=== PATIENT | female | born 1935 | race Caucasian/White ===

== ENCOUNTER 2017-01-14 12:00 | Observation (INO) | payer OTHER, BC ==
[2017-01-14] MEDS ORDERED: ONDANSETRON 4 MG/2 ML VIAL ONE ×2 (12:25→13:47)
[2017-01-14] MEDS ORDERED: ONDANSETRON 4 MG/2 ML VIAL IVPUSH ONE (13:46)
--- NOTE | 2017-01-14 14:00 | PDOC ---
*Physical Exam - Vital Signs Last Vital Signs Temp Pulse Resp BP Pulse Ox 97.3 F L 61 18 142/84 100 01/14/17 12:00 01/14/17 12:00 01/14/17 12:00 01/14/17 12:00 01/14/17 12:00 - Physical Exam Comments: 01/14/17 14:00 MIDLEVEL NOTE Pt seen by Midlevel Provider under my direct supervision. Pt interviewed and examined. Ancillary studies reviewed. I agree with plan as outlined by Midlevel Provider. 01/14/17 15:23 EKG Atrial paced rhythm with a first degree AV block Left axis deviation -8 Normal QRS duration Normal QTC There is nonspecific ST-T wave abnormalities across the anterior precordium When compared to the EKG of 01/28/15 These changes are new from the prior EKG 01/14/17 16:37 Laboratory Results - last 24 hr 01/14/17 01/14/17 01/14/17 13:59 13:59 13:59 WBC 6.3 RBC 3.83 Hgb 11.9 Hct 34.8 MCV 90.8 MCHC 34.3 RDW 13.7 Plt Count 226 D MPV 7.2 L Neutrophils % 79.2 D Lymphocytes % 13.2 D Monocytes % 6.9 Eosinophils % 0.4 D Basophils % 0.3 INR 1.37 H PTT (Actin FS) 34.1 D Sodium 141 Potassium 4.0 Chloride 105 Carbon Dioxide 27 Anion Gap 9 BUN 15 Creatinine 0.7 Creat Clearance w eGFR > 60 Random Glucose 120 H D Calcium 11.1 H Total Bilirubin 0.3 D AST 20 ALT 30 Alkaline Phosphatase 79 Creatine Kinase 31 Troponin I < 0.02 Total Protein 7.2 Albumin 3.6 Digoxin 01/14/17 13:59 WBC RBC Hgb Hct MCV MCHC RDW Plt Count MPV Neutrophils % Lymphocytes % Monocytes % Eosinophils % Basophils % INR PTT (Actin FS) Sodium Potassium Chloride Carbon Dioxide Anion Gap BUN Creatinine Creat Clearance w eGFR Random Glucose Calcium Total Bilirubin AST ALT Alkaline Phosphatase Creatine Kinase Troponin I Total Protein Albumin Digoxin 0.6991 L Impression with mild hypercalcemia, with a corrected calcium of 11.4 May be related to hydrochlorothiazide/thiazide diuretics Will check PTH 01/14/17 16:39 CT head without-moderate atrophy, without acute ED Treatment Course - LABORATORY CBC & Chemistry Diagram: 01/15/17 05:35 01/15/17 05:35 *DC/Admit/Observation/Transfer Diagnosis at time of Disposition: Nausea, Abnormal EKG Urinary tract infection Qualifiers: Urinary tract infection type: site unspecified Hematuria presence: without hematuria Qualified Code(s): N39.0 - Urinary tract infection, site not specified - Discharge Dispostion Condition at time of disposition: Stable
[2017-01-14 14:11] LABS: BASOPHIL 0.3 % (0-2.0); EOSINOPHIL 0.4 % (0-4.5); MCH 31.1 pg (25.7-33.7); MCHC 34.3 g/dl (32.0-36.0); MEAN CELL VOLUME 90.8 fl (80-96); MEAN PLT VOLUME 7.2 fl (7.5-11.1); NEUTROPHILS 79.2 % (42.8-82.8); PLATELET COUNT 226 K/MM3 (134-434); RDW 13.7 % (11.6-15.6); WHITE BLOOD COUNT 6.3 K/mm3 (4.0-10.0)
--- NOTE | 2017-01-14 14:16 | PDOC ---
History of Present Illness - General Chief Complaint: Lightheaded Stated Complaint: NAUSIA Time Seen by Provider: 01/14/17 13:45 History Source: Patient, Family Exam Limitations: No Limitations - History of Present Illness Initial Comments: 01/14/17 14:44 Chief complaint: Nausea and lightheadedness pt is an 81-year-old email with a history of cardiac, on eloquist and dig, hypothyroid and hypertension 8's that starting yesterday she was feeling weak, didn't dizzy, lightheaded and nauseous. Did not have a good appetite, ate dinner but is feeling worse today. No chest pain or shortness of breath, no headache. Whole family had respiratory illness self resolved 1-1/2-2 weeks ago. No fever. GENERAL/CONSTITUTIONAL: No fever, +weakness. dizziness HEAD, EYES, EARS, NOSE AND THROAT: No change in vision. No ear pain or discharge. No sore throat. CARDIOVASCULAR: No chest pain RESPIRATORY: No shortness of breath or cough GASTROINTESTINAL: No pain, +nausea, no:vomiting, diarrhea or constipation GENITOURINARY: No dysuria MUSCULOSKELETAL: No neck or back pain SKIN: No rash NEUROLOGIC: No headache, vertigo, loss of consciousness, or loss of sensation. GENERAL: The patient is awake, alert, and fully oriented, in no acute distress. HEAD: Normal with no signs of trauma. EYES: Pupils equal, round and reactive to light, sclera anicteric, conjunctiva clear. ENT: pharynx: no erythema, no exudate, uvula midline NECK: supple CHEST: clear, nontender, rr ABD: soft, nontender EXTREMITIES: Normal range of motion, at baseline, neurovascular intact NEUROLOGICAL: Normal speech SKIN: Warm, Dry Past History - Past Medical History Allergies/Adverse Reactions: Allergies Allergy/AdvReac Type Severity Reaction Status Date / Time rivaroxaban [From Xarelto] Allergy Verified 01/14/17 12:27 Home Medications: Ambulatory Orders Atorvastatin Ca [Lipitor -] 10 mg PO HS 01/23/15 Levothyroxine [Synthroid -] 25 mcg PO DAILY 01/23/15 Digoxin [Lanoxin -] 0.125 mg PO DAILY tablet 01/29/15 Apixaban [Eliquis] 5 mg PO BID 01/14/17 Losartan/Hydrochlorothiazide [Losartan-Hctz 50-12.5 mg Tab] 1 each PO DAILY 03/28 Cardiac Disorders: Yes (A-Fib) HTN: Yes Seizures: Yes Other medical history: vertigo - Psycho/Social/Smoking Cessation Hx Anxiety: No Suicidal Ideation: No Smoking History: Never smoked Have you smoked in the past 12 months: No If you are a former smoker, when did you quit?: 1969 Information on smoking cessation initiated: No Hx Alcohol Use: No Drug/Substance Use Hx: No Substance Use Type: None *Physical Exam - Vital Signs Last Vital Signs Temp Pulse Resp BP Pulse Ox 97.3 F L 61 18 142/84 100 01/14/17 12:00 01/14/17 12:00 01/14/17 12:00 01/14/17 12:00 01/14/17 12:00 Heart Score/ECG Review - ECG Intrepretation Rhythm: Regular Rhythm Comment:: 01/14/17 14:52 pAce maker rhythm at 60, LVH, nonspecific ST-T wave changes, QTC 392 01/14/17 17:44 ED Treatment Course - LABORATORY CBC & Chemistry Diagram: 01/14/17 13:59 01/14/17 13:59 - ADDITIONAL ORDERS Additional order review: 01/14/17 13:59 RBC 3.83 MCV 90.8 MCHC 34.3 RDW 13.7 MPV 7.2 L Neutrophils % 79.2 D Lymphocytes % 13.2 D Monocytes % 6.9 Eosinophils % 0.4 D Basophils % 0.3 - Medications Given in the ED: ED Medications Discontinued Medications Generic Name Dose Route Start Last Admin Trade Name Freq PRN Reason Stop Dose Admin Ondansetron HCl 4 mg 01/14/17 13:46 01/14/17 14:00 Zofran Injection IVPUSH 01/14/17 13:47 4 mg ONCE ONE Administration Medical Decision Making - Medical Decision Making 01/14/17 14:53 81-year-old female with weakness, nausea, no abdominal chest pain or shortness of breath, also with poor appetite and lightheadedness. On dig and eloquis. Do cardiac workup, hydrate as patient has not urinated at all since this morning and head CT, due to history of prior bleed and on anticoagulation. Patient will need at least to stay overnight 01/14/17 17:45 Patient continues with nausea, hydrated, cardiac enzymes are negative, EKG is slightly changed, dig level is just below normal and patient found to have UTI and calcium is elevated, patient is on hydrochlorothiazide area did patient being hydrated, anti-emetics, Discussed Dr. Evans, patient will go to telemetry labs, consult for cardiology , no need to call today as per Dr. Evans, he will follow Antibiotics ordered, urine culture ordered *DC/Admit/Observation/Transfer Diagnosis at time of Disposition: Nausea, Abnormal EKG Urinary tract infection Qualifiers: Urinary tract infection type: site unspecified Hematuria presence: without hematuria Qualified Code(s): N39.0 - Urinary tract infection, site not specified - Discharge Dispostion Condition at time of disposition: Stable Admit: Yes - Referrals
[2017-01-14 14:23] LABS: INR 1.37 (0.82-1.09); PROTHROMBIN TIME (PATIENT) 15.2 SEC (9.98-11.88)
[2017-01-14 14:26] LABS: ACTIVATED PTT 34.1 SECONDS (26.9-34.4)
[2017-01-14] MEDS ORDERED: SODIUM CHLORIDE 1,000 ML IV STA (14:29)
[2017-01-14 14:37] LABS: ALBUMIN 3.6 g/dl (3.4-5.0); ANION GAP 9 (8-16); BILIRUBIN,TOTAL 0.3 mg/dL (0.2-1.0); CALCIUM 11.1 mg/dL (8.5-10.1); CO2 27 mmol/L (21-32); CREATININE 0.7 mg/dL (0.55-1.02); GLUCOSE,RANDOM 120 mg/dL (74-106); SGOT/AST 20 U/L (15-37); SGPT/ALT 30 U/L (12-78); TOT PROT 7.2 g/dl (6.4-8.2)
[2017-01-14 14:39] LABS: ALK PHOS 79 U/L (45-117); TROPONIN I < 0.02 ng/ml (0.00-0.05)
[2017-01-14 16:50] LABS: URINE APPEARANCE SLCLOUDY; URINE BILIRUBIN NEGATIVE (NEGATIVE); URINE COLOR YELLOW; URINE GLUCOSE (UA) NEGATIVE (NEGATIVE); URINE KETONE NEGATIVE (NEGATIVE); URINE NITRITE NEGATIVE (NEGATIVE); URINE UROBILINOGEN NEGATIVE E.U./dl (0.2-1.0)
[2017-01-14 16:54] LABS: URINE BLOOD 1+ (NEGATIVE); URINE LEUK ESTERASE 3+ (NEGATIVE); URINE PROTEIN 1+ (NEGATIVE)
[2017-01-14 16:55] LABS: URINE MUCUS FEW; URINE RBC 8 /hpf (0-3); URINE WBC 26 /hpf (3-5)
[2017-01-14] MEDS ORDERED: METOCLOPRAMIDE HCL INJECTION 10 MG/2 ML VIAL IVPB ONE (17:02)
[2017-01-14] MEDS ORDERED: CEFTRIAXONE 1 GM in DEXTROSE 5%-WATER - 50 ML IVPB ONE (17:04)
[2017-01-14] MEDS ORDERED: METOCLOPRAMIDE HCL INJECTION 10 MG/2 ML VIAL ONE (17:57)
[2017-01-14] MEDS ORDERED: CEFTRIAXONE 50 ML ONE (17:57)
--- NOTE | 2017-01-14 18:57 | EKG ---
Test Reason : Blood Pressure : / mmHG Vent. Rate : 060 BPM Atrial Rate : 058 BPM P-R Int : 000 ms QRS Dur : 092 ms QT Int : 392 ms P-R-T Axes : 000 -08 -11 degrees QTc Int : 392 ms Atrial-paced rhythm with prolonged AV conduction MINIMAL VOLTAGE CRITERIA FOR LVH, MAY BE NORMAL VARIANT T-WAVE INVERSION IN ANTERIOR LEADS FLAT T WAVES IN INFEROLATERAL LEADS ABNORMAL ECG WHEN COMPARED WITH ECG OF 28-JAN-2015 08:24, T WAVES ABNORMALITY IS NOW PRESENT IN ANTERIOR LEADS Confirmed by ELDA CHANDRA, IRVIN ([id number]) on 01/14/2017 6:56:59 PM Referred By: Confirmed By:IRVIN SCHROEDER MD
[2017-01-14 19:10] VITALS: BMI 24.9
[2017-01-14] MEDS ORDERED: ACETAMINOPHEN 325 MG TABLET (FP) PO PRN (21:11)
[2017-01-14] MEDS ORDERED: ONDANSETRON *ODT* 4 MG TABLET SL PRN (21:11)
[2017-01-14] MEDS: ATORVASTATIN CA 10 MG TABLET (FP) PO SCH (23:42)
[2017-01-14] MEDS: APIXABAN 5 MG TABLET PO SCH (23:42)
[2017-01-14 23:58] LABS: TROPONIN I < 0.02 ng/ml (0.00-0.05)
[2017-01-15] MEDS ORDERED: LEVOTHYROXINE NA 25 MCG TABLET (FP) PO SCH (07:00)
[2017-01-15 07:19] LABS: MCH 31.2 pg (25.7-33.7); MCHC 34.4 g/dl (32.0-36.0); MEAN CELL VOLUME 90.5 fl (80-96); MEAN PLT VOLUME 7.9 fl (7.5-11.1); PLATELET COUNT 223 K/MM3 (134-434); RDW 13.9 % (11.6-15.6); WHITE BLOOD COUNT 6.9 K/mm3 (4.0-10.0)
[2017-01-15 07:54] LABS: ANION GAP 5 (8-16); CALCIUM 10.3 mg/dL (8.5-10.1); CHOLESTEROL 146 mg/dL (50-200); CO2 29 mmol/L (21-32); CREATININE 0.7 mg/dL (0.55-1.02); GLUCOSE,RANDOM 72 mg/dL (74-106); SGOT/AST 20 U/L (15-37); SGPT/ALT 27 U/L (12-78)
[2017-01-15 08:04] LABS: ALK PHOS 69 U/L (45-117); BILIRUBIN,TOTAL 0.3 mg/dL (0.2-1.0); LDL CHOLESTEROL (ONLY SJRH) 78 mg/dL (5-100); THYROID STIMULATING HORMONE 4.06 uIU/ml (0.358-3.74); TOT PROT 6.5 g/dl (6.4-8.2)
[2017-01-15 09:21] LABS: FREE T4 1.23 ng/dl (0.76-1.46)
--- NOTE | 2017-01-15 09:39 | CON.CARD ---
Consult Consult Specialty:: cardio Referred by:: irene Reason for Consultation:: dizzy, LH, nauseated - History of Present Illness Chief Complaint: same as above History of Present Illness: 81 yo female presented with sx's of dizziness/LH, nausea. Noted to have new ST-T changes on her ECG. also mild hypercalcemia (11) last seen in our office 2013 by me at that time--reported chronic SOB sx's which were exertional and stable long time also h/o palpitations with LH at that time, ? undiagnosed PSVT--sx's controlled on atenolol she had LE varicosities and edema felt likely venous ins'y she describes to me that she was doing routine things around the house, not exerting but can't remember what exactly, standing up at the time and felt dizzy --like going to lose her balance so sat on couch; not faint/presyncopal--no LOC; like room moving ? spinning; never happened before; denies to me ifeanyi assct palpitations/cp/sob. says her chronic SOB with exertion has been unchanged and actually no sx's of late denies new neuro deficits PMH: HTN HPL venous ins'y (LEs) - Past Medical History Cardio/Vascular: Yes: AFIB, HTN Infectious Disease: Yes: Other (no h/o Lyme disease) Psych: Yes: Anxiety. No: Depression Endocrine: Yes: Hypothyroidism - Alcohol/Substance Use Hx Alcohol Use: No - Smoking History Smoking history: Never smoked Have you smoked in the past 12 months: No If you are a former smoker, when did you quit?: 1970 Home Medications - Allergies Allergies/Adverse Reactions: Allergies Allergy/AdvReac Type Severity Reaction Status Date / Time rivaroxaban [From Xarelto] Allergy Verified 01/14/17 12:27 - Home Medications Home Medications: Ambulatory Orders Atorvastatin Ca [Lipitor -] 10 mg PO HS 01/23/15 Levothyroxine [Synthroid -] 25 mcg PO DAILY 01/23/15 Digoxin [Lanoxin -] 0.125 mg PO DAILY tablet 01/29/15 Apixaban [Eliquis] 5 mg PO BID 01/14/17 Losartan/Hydrochlorothiazide [Losartan-Hctz 50-12.5 mg Tab] 1 each PO DAILY 03/28 Family Disease History - Family Disease History Family History: Denies (no cmp) Vital Signs: Vital Signs Temperature 98.2 F 01/15/17 08:10 Pulse Rate 60 01/15/17 08:10 Respiratory Rate 14 01/15/17 08:10 Blood Pressure 140/78 01/15/17 08:10 O2 Sat by Pulse Oximetry (%) 100 01/14/17 18:30 - Other Data Labs, Other Data: CBC, BMP 01/15/17 05:35 01/15/17 05:35 INR, PTT INR 1.37 (0.82-1.09) H 01/14/17 13:59 Troponin, BNP 01/14/17 23:00 Troponin I < 0.02 Troponin, BNP 01/14/17 23:00 Troponin I < 0.02 Laboratory Tests 01/14/17 01/14/17 01/15/17 13:59 23:00 05:35 WBC 6.9 Hgb 11.2 Plt Count 223 Sodium Potassium Carbon Dioxide BUN Creatinine Calcium 11.1 H AST ALT Creatine Kinase 31 53 Troponin I < 0.02 < 0.02 Triglycerides Cholesterol Total LDL Cholesterol HDL Cholesterol TSH 01/15/17 05:35 WBC Hgb Plt Count Sodium 143 Potassium 4.0 Carbon Dioxide 29 BUN 15 Creatinine 0.7 Calcium 10.3 H AST 20 ALT 27 Creatine Kinase Troponin I Triglycerides 90 Cholesterol 146 Total LDL Cholesterol 78 HDL Cholesterol 63 H TSH 4.06 H ekg: A-paced/V-sensed; normal axis/intervals; nonsp ST-Ts anterior and infer leads all priors reviewed: has had intermittent similar ST-Ts on prior ekg's here 2014 Imaging - Results Chest X-ray: Report Reviewed (clear lungs/pleura) Assessment/Plan dizzy/LH, nausea: -sx's sound highly c/w vertigo/vestibular etiology -per pmd +/- neuro--? meclizine trial, ? outpt vestibular rehab -no low bp's here, incl when orthostatic VSs checked -trop neg x 2 -ECG findings not entirely new--she had fluctuating ST-Ts on ecg here 01/24 with similar appearance on mult occasions -CT head no acute pathology -PM function normal on check with dr woods 09/27; normal fxn evident on tele here--no need for rpt interrogation here given dizziness has alternate etiology -cont telemetry x 24 hours paroxysmal AF/SSS: -rapid rates when here 2014, treated with dig b/c BP low side -s/p PPM 2015 -on eliquis--cont same HTN: -bp well controlled here -no orthostatic changes supine to standing mildly elevated TSH: -per pmd venous ins'y: -chronic, with mild edema -not signif changed here, not troubling to her -cont home HCTZ, without lasix and monitor
[2017-01-15] MEDS: DIGOXIN 0.125 MG TABLET (FP) PO SCH (09:56)
[2017-01-15] MEDS: APIXABAN 5 MG TABLET PO SCH ×2 (09:56→21:18)
[2017-01-15] MEDS: LOSARTAN 50MG/HCTZ 12.5MG 1 TAB (FP) PO SCH (09:57)
[2017-01-15] MEDS ORDERED: CEFTRIAXONE 50 ML IVPB SCH (10:00)
[2017-01-15] MEDS ORDERED: PT OWN MED DRAWER 7, Y5N ONE (11:59)
[2017-01-15] MEDS ORDERED: LEVOTHYROXINE NA 50 MCG TABLET (FP) PO SCH (17:52)
--- NOTE | 2017-01-15 17:53 | HP ---
Admitting History and Physical - Primary Care Physician PCP: Sebastian Evans - Admission Chief Complaint: WEAKNESS History Source: Medical Record - Past Medical History Cardiovascular: Yes: AFIB, HTN Infectious Disease: Yes: Other (no h/o Lyme disease) Psych: Yes: Anxiety. No: Depression Endocrine: Yes: Hypothyroidism - Smoking History Smoking history: Never smoked Have you smoked in the past 12 months: No If you are a former smoker, when did you quit?: 1969 - Alcohol/Substance Use Hx Alcohol Use: No Home Medications - Allergies Allergies/Adverse Reactions: Allergies Allergy/AdvReac Type Severity Reaction Status Date / Time rivaroxaban [From Xarelto] Allergy Verified 01/14/17 12:27 - Home Medications Home Medications: Ambulatory Orders Atorvastatin Ca [Lipitor -] 10 mg PO HS 01/23/15 Levothyroxine [Synthroid -] 25 mcg PO DAILY 01/23/15 Digoxin [Lanoxin -] 0.125 mg PO DAILY tablet 01/29/15 Apixaban [Eliquis] 5 mg PO BID 01/14/17 Losartan/Hydrochlorothiazide [Losartan-Hctz 50-12.5 mg Tab] 1 each PO DAILY 03/28 Review of Systems - Review of Systems Constitutional: denies: Chills, Fever Cardiovascular: denies: Chest Pain Respiratory: denies: SOB Gastrointestinal: denies: Abdominal Pain Physical Examination Vital Signs: Vital Signs Temperature 98.6 F 01/15/17 14:00 Pulse Rate 60 01/15/17 14:00 Respiratory Rate 16 01/15/17 14:00 Blood Pressure 136/71 01/15/17 14:00 O2 Sat by Pulse Oximetry (%) 96 01/15/17 11:13 Cardiovascular: Yes: WNL Respiratory: Yes: WNL Gastrointestinal: Yes: WNL Edema: No Labs: CBC, BMP 01/15/17 05:35 01/15/17 05:35 Imaging - Results Chest X-ray: Report Reviewed Cat Scan: Report Reviewed Problem List - Problems (1) Abnormal EKG Code(s): R94.31 - ABNORMAL ELECTROCARDIOGRAM [ECG] [EKG] (2) Urinary tract infection Code(s): N39.0 - URINARY TRACT INFECTION, SITE NOT SPECIFIED Qualifiers: Urinary tract infection type: site unspecified Hematuria presence: without hematuria Qualified Code(s): N39.0 - Urinary tract infection, site not specified (3) Afib Code(s): I48.91 - UNSPECIFIED ATRIAL FIBRILLATION Qualifiers: Atrial fibrillation type: chronic atrial fibrillation (4) HLD (hyperlipidemia) Code(s): E78.5 - HYPERLIPIDEMIA, UNSPECIFIED (5) HTN (hypertension) Code(s): I10 - ESSENTIAL (PRIMARY) HYPERTENSION (6) Hypothyroidism Code(s): E03.9 - HYPOTHYROIDISM, UNSPECIFIED Qualifiers: Hypothyroidism type: unspecified hypothyroidism (7) Weakness Code(s): R53.1 - WEAKNESS Assessment/Plan pt is an 81-year-old email with a history of cardiac, on eloquist and dig, hypothyroid and hypertension 8's that starting yesterday she was feeling weak, didn't dizzy, lightheaded and nauseous. Did not have a good appetite, ate dinner but is feeling worse today. No chest pain or shortness of breath, no headache. Whole family had respiratory illness self resolved 1-1/2-2 weeks ago. No fever. (1) Abnormal EKG Code(s): R94.31 - ABNORMAL ELECTROCARDIOGRAM [ECG] [EKG] CARDIO CONSULTED (2) Urinary tract infection Code(s): N39.0 - URINARY TRACT INFECTION, SITE NOT SPECIFIED Qualifiers: Urinary tract infection type: site unspecified Hematuria presence: without hematuria Qualified Code(s): N39.0 - Urinary tract infection, site not specified ID CONSULTED F/U CULTURES (3) Afib Code(s): I48.91 - UNSPECIFIED ATRIAL FIBRILLATION Qualifiers: Atrial fibrillation type: chronic atrial fibrillation Qualified Code(s) : I48.2 - Chronic atrial fibrillation APPRECIATE CARDIO CONSULT NOAC (4) HLD (hyperlipidemia) Code(s): E78.5 - HYPERLIPIDEMIA, UNSPECIFIED LOW FAT DIET (5) HTN (hypertension) Code(s): I10 - ESSENTIAL (PRIMARY) HYPERTENSION ACCEPTABLE CONTROL (6) Hypothyroidism Code(s): E03.9 - HYPOTHYROIDISM, UNSPECIFIED Qualifiers: Hypothyroidism type: unspecified hypothyroidism Qualified Code(s): E03.9 - Hypothyroidism, unspecified (7) Weakness Code(s): R53.1 - WEAKNESS PT [employer]
[2017-01-15] MEDS: ATORVASTATIN CA 10 MG TABLET (FP) PO SCH (21:18)
[2017-01-16] MEDS ORDERED: CEFTRIAXONE 2 GM in DEXTROSE 5%-WATER - 100 ML IVPB ONE (06:38)
[2017-01-16] MEDS ORDERED: cefTRIAXone 2 GM/100 ML BAG (PRE-DOCKED) IVPB ONE (07:15)
[2017-01-16 07:21] LABS: BASOPHIL 0.8 % (0-2.0); EOSINOPHIL 1.8 % (0-4.5); MCH 30.3 pg (25.7-33.7); MCHC 33.4 g/dl (32.0-36.0); MEAN CELL VOLUME 90.8 fl (80-96); MEAN PLT VOLUME 7.9 fl (7.5-11.1); NEUTROPHILS 53.1 % (42.8-82.8); PLATELET COUNT 231 K/MM3 (134-434); RDW 13.9 % (11.6-15.6); WHITE BLOOD COUNT 5.5 K/mm3 (4.0-10.0)
[2017-01-16 07:55] LABS: ALBUMIN 3.1 g/dl (3.4-5.0); ANION GAP 10 (8-16); BILIRUBIN,TOTAL 0.3 mg/dL (0.2-1.0); CALCIUM 10.6 mg/dL (8.5-10.1); CO2 27 mmol/L (21-32); CREATININE 0.7 mg/dL (0.55-1.02); GLUCOSE,RANDOM 85 mg/dL (74-106); SGOT/AST 22 U/L (15-37); SGPT/ALT 28 U/L (12-78); TOT PROT 6.5 g/dl (6.4-8.2)
[2017-01-16] MEDS ORDERED: PT OWN MED DRAWER 7, Y5N ONE (08:16)
[2017-01-16 08:20] LABS: ALK PHOS 66 U/L (45-117); TROPONIN I < 0.02 ng/ml (0.00-0.05)
[2017-01-16 08:46] VITALS: BP 140/72; PULSE 62; TEMP 98.5
[2017-01-16] MEDS: APIXABAN 5 MG TABLET PO SCH (08:59)
[2017-01-16] MEDS: DIGOXIN 0.125 MG TABLET (FP) PO SCH (08:59)
[2017-01-16] MEDS: LOSARTAN 50MG/HCTZ 12.5MG 1 TAB (FP) PO SCH (09:01)
--- NOTE | 2017-01-16 14:45 | CONSULT ---
Consult Consult Specialty:: Otolaryngology Reason for Consultation:: dizziness - History of Present Illness History of Present Illness: 81F developed "dizziness" a few days prior to admission last week. She describes it as seeing things moving back and forth, and was present even when sitting still without moving her body/neck/head. There has been no associated hearing loss or tinnitus, nor loss of vision, halos, headache, numbness/ weakness arms/legs. She has a cardiac history and is on digoxin and is hypothyroid. Note of elevated PTH, abnormal thyroid hormone levels, and ?UTI. Head CT is negative On arrival this morning, she reports her dizziness is gone. She and family had URIs in the week or so preceding this. - History Source History Provided By: Patient Limitations to Obtaining History: No Limitations - Past Medical History Cardio/Vascular: Yes: AFIB, HTN Infectious Disease: Yes: Other (no h/o Lyme disease) Psych: Yes: Anxiety. No: Depression Endocrine: Yes: Hypothyroidism - Alcohol/Substance Use Hx Alcohol Use: No - Smoking History Smoking history: Never smoked Have you smoked in the past 12 months: No If you are a former smoker, when did you quit?: 1970 Home Medications - Allergies Allergies/Adverse Reactions: Allergies Allergy/AdvReac Type Severity Reaction Status Date / Time rivaroxaban [From Xarelto] Allergy Verified 01/14/17 12:27 - Home Medications Home Medications: Ambulatory Orders Atorvastatin Ca [Lipitor] 10 mg PO HS 01/23/15 Levothyroxine [Synthroid -] 25 mcg PO DAILY 01/23/15 Digoxin [Lanoxin -] 0.125 mg PO DAILY tablet 01/29/15 Apixaban [Eliquis] 5 mg PO BID 01/14/17 Losartan/Hydrochlorothiazide [Losartan-Hctz 50-12.5 mg Tab] 1 each PO DAILY 03/28 Acetaminophen [Tylenol .Regular Strength -] 650 mg PO Q6H PRN #0 tablet Apixaban [Eliquis -] 5 mg PO BID tablet 01/16/17 Atorvastatin Ca [Lipitor] 10 mg PO HS tablet 01/16/17 Digoxin [Lanoxin -] 0.125 mg PO DAILY tablet 01/16/17 Levothyroxine [Synthroid -] 25 mcg PO DAILY@0700 tablet 01/16/17 Losartan 50Mg/Hctz 12.5MG [Hyzaar -] 1 tab PO DAILY tablet 01/16/17 Ondansetron [Zofran Odt -] 4 mg SL Q6H PRN #30 tab.rapdis 01/16/17 Review of Systems - Review of Systems HENT: denies: Ear Discharge, Ear Pain Neurological: reports: Dizziness Physical Exam Vital Signs: Vital Signs Temperature 98.5 F 01/16/17 08:00 Pulse Rate 62 01/16/17 08:59 Respiratory Rate 14 01/16/17 08:00 Blood Pressure 140/72 01/16/17 08:00 O2 Sat by Pulse Oximetry (%) 96 01/16/17 10:36 Constitutional: Yes: Well Nourished, No Distress, Calm, Other (sitting at bedside, no distress. very pleasant.) Eyes: Yes: WNL HENT: Yes: Other (Nml pinna, EACs grossly bilaterally. Nose clear to ant rhinoscopy. Mouth: MMM, no masses/lesions. Post o/p clear.) Neck: Yes: WNL Neurological: Yes: Other (CN3-7,11,12 intact, symmetrical no nystagmus) Labs: CBC, BMP 01/16/17 05:35 01/16/17 05:35 Imaging - Results Cat Scan: Report Reviewed, Image Reviewed (middle ears, mastoids, sinuses clear) Problem List - Problems (1) Dizziness Assessment/Plan: Has resolved. ?postviral Low suspicion for otogenic etiology Consider Neurology evaluation No auditory symptoms Advise followup with hearing test as means of assessing inner ear function Management of medical comorbidities, bloodwork abnormalities, UTI per primary team. Thank you for this consultation. Code(s): R42 - DIZZINESS AND GIDDINESS
--- NOTE | 2017-01-16 16:26 | DS ---
Physical Examination Vital Signs: Vital Signs Temperature 98.5 F 01/16/17 08:00 Pulse Rate 62 01/16/17 08:59 Respiratory Rate 14 01/16/17 08:00 Blood Pressure 140/72 01/16/17 08:00 O2 Sat by Pulse Oximetry (%) 96 01/16/17 10:36 Constitutional: Yes: Well Nourished, No Distress Labs: CBC, BMP 01/16/17 05:35 01/16/17 05:35 Discharge Summary Reason For Visit: URINARY TRACT INFECTION,ABNORMAL ELECTROCARDIOGRAP UTI WEAKNESS Procedures: Principal: LABS Other Procedures: HEAD CT Hospital Course: NEURO WORKUP AND CARDIO EVAL. TREATED FOR UTI, IV ABX, CLEARED BY CARDIOLOGY F/ U OUTPATIENT Condition: Stable - Instructions Diet, Activity, Other Instructions: LOW SODIUM Referrals: Sebastian Evans MD [Primary Care Provider] - - Home Medications Comprehensive Discharge Medication List: Ambulatory Orders Atorvastatin Ca [Lipitor] 10 mg PO HS 01/23/15 Levothyroxine [Synthroid -] 25 mcg PO DAILY 01/23/15 Digoxin [Lanoxin -] 0.125 mg PO DAILY tablet 01/29/15 Apixaban [Eliquis] 5 mg PO BID 01/14/17 Losartan/Hydrochlorothiazide [Losartan-Hctz 50-12.5 mg Tab] 1 each PO DAILY 03/28 Acetaminophen [Tylenol .Regular Strength -] 650 mg PO Q6H PRN #0 tablet Apixaban [Eliquis -] 5 mg PO BID tablet 01/16/17 Atorvastatin Ca [Lipitor] 10 mg PO HS tablet 01/16/17 Digoxin [Lanoxin -] 0.125 mg PO DAILY tablet 01/16/17 Levothyroxine [Synthroid -] 25 mcg PO DAILY@0700 tablet 01/16/17 Losartan 50Mg/Hctz 12.5MG [Hyzaar -] 1 tab PO DAILY tablet 01/16/17 Ondansetron [Zofran Odt -] 4 mg SL Q6H PRN #30 tab.rapdis 01/16/17
== END 2017-01-16 09:58 | disposition home or self-care (01) ==
LOC: JER 12:00 → JERBED 17:05 → J4W 20:10
PROVIDERS: ADMIT Family Medicine; ATTEND Family Medicine
DX: N39.0 Urinary tract infection, site not specified (principal); E83.52 Hypercalcemia; E03.9 Hypothyroidism, unspecified; I10 Essential (primary) hypertension; E78.5 Hyperlipidemia, unspecified; R42 Dizziness and giddiness; I87.2 Venous insufficiency (chronic) (peripheral); I48.2 Chronic atrial fibrillation; R53.1 Weakness; R94.31 Abnormal electrocardiogram [ECG] [EKG]
CPT/HCPCS: 36415; 70450-TC; 71010-TC; 80053; 80061; 80162; 81003; 81015; 82550; 82607; 83036; 83721; 83970; 84439; 84443; 84484; 85025; 85027; 85610; 85730; 86593; 87040; 87086; 87186; 93005; 93010; 99285-25; G0378